=== PATIENT | male | born 1965 | race American Indian/Alaskan Native ===

== ENCOUNTER 2017-04-12 01:35 | Emergency (ER) | payer OTHER ==
[2017-04-12] MEDS ORDERED: ZOFRAN IV ONE (02:39)
[2017-04-12] MEDS ORDERED: SUBLIMAZE IV ONE (02:40)
--- NOTE | 2017-04-12 02:49 | Emergency Department Report ---
HPI - General Chief Complaint: Chest Pain Time Seen by Provider: 04/12/17 02:16 - HPI HPI: The patient is a 51-year-old male presents for evaluation of chest pain. The patient reports constant midsternal chest pain since 4 PM earlier today, radiating to the back, 8/10 in severity, pressure-like in quality, exacerbated with deep breaths. The patient denies fever, neck pain, parasthesias, dyspnea, cough, hemoptysis, palpitations, dizziness, syncope, unilateral leg swelling, calf muscle pain. Patient also denies cocaine or other stimulant use, history of DVT or PE, recent immobilization, or history of cancer. ED Past Medical Hx - Past Medical History Previous Medical History?: Yes Hx Hypertension: Yes Hx Seizures: Yes - Surgical History Past Surgical History?: No - Social History Smoking Status: Never Smoker Substance Use Type: None ED Review of Systems ROS: Stated complaint: CHEST PAIN Other details as noted in HPI Constitutional: denies: fever ENT: denies: throat or neck pain Respiratory: denies: cough, shortness of breath Cardiovascular: reports: chest pain Endocrine: denies unexplained weight loss or gain Gastrointestinal: denies: abdominal pain, nausea Genitourinary: denies: dysuria Musculoskeletal: denies: leg swelling Skin: denies: rash Neurological: denies: headache Hematological/Lymphatic: denies: easy bleeding or easy bruising Psych: denies sadness or hopelessness Physical Exam - Physical Exam Vital Signs: Vital Signs 04/12/17 04/12/17 04/12/17 01:58 02:12 02:16 Temperature 99.1 F 99.1 F Pulse Rate 78 77 Respiratory 17 19 Rate Blood Pressure 116/81 Blood Pressure [Left] O2 Sat by Pulse 96 96 Oximetry 04/12/17 02:17 Temperature Pulse Rate Respiratory 17 Rate Blood Pressure Blood Pressure 113/77 [Left] O2 Sat by Pulse 99 Oximetry Physical Exam: General: well-nourished, well-developed, no acute distress Head: Normocephalic, atraumatic Eyes: normal sclera ENT: Mucous membranes are pink and moist Neck: trachea midline, neck supple, No neck stiffness, no cervical adenopathy Respiratory: Breath sounds equal bilaterally, no wheezing, rales, or rhonchi Cardio: S1 and S2 present, no murmurs, rubs, gallops, capillary refill is brisk Abdomen: Normoactive bowel sounds, soft abdomen, no rigidity, no guarding or rebound tenderness Chest WALL/Back: No tenderness to palpation of the chest wall, no CVA tenderness with percussion Musc: No pitting edema Skin: No rash Neuro: no facial drooping, normal speech Psych: Normal affect ED Course Vital Signs 04/12/17 04/12/17 04/12/17 01:58 02:12 02:16 Temperature 99.1 F 99.1 F Pulse Rate 78 77 Respiratory 17 19 Rate Blood Pressure 116/81 Blood Pressure [Left] O2 Sat by Pulse 96 96 Oximetry 04/12/17 02:17 Temperature Pulse Rate Respiratory 17 Rate Blood Pressure Blood Pressure 113/77 [Left] O2 Sat by Pulse 99 Oximetry ED Medical Decision Making - Lab Data Result diagrams: 04/12/17 02:52 04/12/17 02:52 - Medical Decision Making The patient was seen and examined by myself. The patient is placed on a phototypesetting equipment monitor and continuous pulse ox. On initial evaluation, the patient was found to be in no distress. EKG was negative for findings suggestive of acute cardiac infarct. Labs and imaging are obtained. The patient given IV fentanyl for his pain. Chest x-ray is negative for pneumothorax, focal consolidation, pulmonary vascular congestion, pleural effusion, or other obvious acute cardiopulmonary disease process. Lab results were non-concerning including levels of troponin, WBC, hemoglobin, hematocrit, electrolytes, renal function. CT angiogram of the chest is negative for pulmonary embolism or aortic dissection. The patient was reevaluated and reported that their symptoms were markedly improved. As the patient has a NAKITA risk score less than 2, and a well's score less than 2, the patient is at low risk of ACS or pulmonary emboli etiology of their symptoms. The patient is stable for discharge with outpatient follow-up. The patient is given follow-up and return instructions. The patient expressed understanding and agreed with the plan. The patient is discharged in stable condition. Critical care attestation.: If time is entered above; I have spent that time in minutes in the direct care of this critically ill patient, excluding procedure time. ED Disposition Clinical Impression: Acute chest pain Disposition: DC-01 TO HOME OR SELFCARE Is pt being admited?: No Does the pt Need Aspirin: No Condition: Stable Instructions: Chest Pain (ED) Referrals: PRIMARY CARE, [Primary Care Provider] - 3-5 Days Time of Disposition: 06:01
[2017-04-12] MEDS ORDERED: NACL ONE (02:58)
--- NOTE | 2017-04-12 03:14 | XRay Report ---
FINAL REPORT EXAM: XR CHEST ROUTINE 2V HISTORY: chest pain TECHNIQUE: PA and lateral views of the chest were submitted. FINDINGS: Heart size and mediastinum appear normal. The lungs are clear. Pleural fluid is not seen. The bones and soft tissues reveal hardware in the proximal right humerus from previous ORIF. IMPRESSION: No active chest disease.
[2017-04-12 03:27] LABS: Basophils % (Auto) 0.4 % (0.0-1.8); Eosinophils # (Auto) 0.2 K/mm3 (0.0-0.4); Eosinophils % (Auto) 2.3 % (0.0-4.3); Hematocrit 45.8 % (35.5-45.6); Hemoglobin 15.9 gm/dl (11.8-15.2); Lymphocytes # (Auto) 1.3 K/mm3 (1.2-5.4); Lymphocytes % (Auto) 12.4 % (13.4-35.0); Mean Corpuscular HGB Conc 35 % (32-34); Mean Corpuscular Hemoglobin 34 pg (28-32); Mean Corpuscular Volume 96 fl (84-94); Monocytes # (Auto) 1.1 K/mm3 (0.0-0.8); Platelet Count 243 K/mm3 (140-440); Red Blood Count 4.76 M/mm3 (3.65-5.03); Red Cell Distribution Width 13.4 % (13.2-15.2)
[2017-04-12 03:42] LABS: BUN/Creatinine Ratio 13; Blood Urea Nitrogen 14 mg/dL (9-20); Hemolysis Index 18
[2017-04-12] MEDS ORDERED: NACL 0.9% 1000 ML 1,000 ML IV ONE (04:16)
--- NOTE | 2017-04-12 04:25 | Cat Scan Report ---
FINAL REPORT EXAM: CT ANGIO CHEST HISTORY: chest pain TECHNIQUE: A CT angiogram was performed following the intravenous injection of 100 cc of Omnipaque 350. Rotational, sagittal and coronal MIP reconstructions were reviewed. FINDINGS: The lungs reveal minimal dependent atelectasis in both lower lobes. There are no infiltrates or effusions. The lungs are not congested. There is no evidence of pulmonary embolus or aortic dissection. The thoracic aorta is normal in caliber. Heart size is normal. Pericardial fluid is not seen. There is no evidence of adenopathy. In the upper abdomen the adrenal glands appear normal. The skeletal structures reveal mild disc degeneration in the thoracic spine. At the thoracic inlet the thyroid gland appears normal IMPRESSION: No evidence of pulmonary embolus, aortic dissection, or vascular congestion. Very mild dependent atelectasis in both lower lobes. No acute infiltrates or effusions.
[2017-04-12 07:52] VITALS: BP 122/66
== END 2017-04-12 07:50 | disposition home or self-care (01) ==
LOC: ED 01:35
DX: R07.9 Chest pain, unspecified (principal); I10 Essential (primary) hypertension; Z88.6 Allergy status to analgesic agent
CPT/HCPCS: 36415; 71046; 71275; 80048; 83880; 84484; 85025; 85379; 93005; 93010; 96361; 96374; 96375; 99285; J2405; J3010; J7030; Q9967